=== PATIENT | female | born 1965 | race Hispanic/Latino ===

== ENCOUNTER 2017-12-22 16:07 | Outpatient (CLI) | payer BC | END 2017-12-22 16:08 | disposition home or self-care (01) | LOC: BICMAMMO 16:07 | PROVIDERS: ATTEND Family Medicine | DX: Z12.31 Encounter for screening mammogram for malignant neoplasm of breast (principal) | CPT/HCPCS: 77063; 77067 ==

== ENCOUNTER 2018-06-27 15:01 | Outpatient (CLI) | payer BC ==
--- NOTE | 2018-06-27 16:35 | RAD ---
CHEST 2 VIEWS: Date: 06/27/18 HISTORY: Fever and cough. FINDINGS: Cardiac silhouette and pulmonary vasculature are unremarkable. Mediastinum is midline. No confluent a ir space consolidation, pneumothorax, or pleural fluid. IMPRESSION: No active cardiopulmonary abnormalities are demonstrated. POS: [facility]
== END 2018-06-27 15:02 | disposition home or self-care (01) ==
LOC: BICRAD 15:01
PROVIDERS: ATTEND Physician Assistant
DX: R50.9 Fever, unspecified (principal)
CPT/HCPCS: 36415; 71046; 85025; 87086

== ENCOUNTER 2018-07-06 14:17 | Outpatient (CLI) | payer BC | END 2018-07-06 14:18 | disposition home or self-care (01) | LOC: ULT 14:17 | PROVIDERS: ATTEND Physician Assistant | DX: R01.1 Cardiac murmur, unspecified (principal); I08.3 Combined rheumatic disorders of mitral, aortic and tricuspid valves | CPT/HCPCS: 93306 ==

== ENCOUNTER 2019-01-10 15:34 | Outpatient (CLI) | payer BC ==
--- NOTE | 2019-01-11 08:01 | MMO ---
Bilateral MAMMO Bilat Screen [facility]. CLINICAL HISTORY: Patient is 53 years old and is seen for screening. The patient has no family history of breast cancer. The patient has no personal history of cancer. The patient has a history of bilateral Stereotatic Biopsy in 1999 - benign. VIEWS: The views performed were: bilateral craniocaudal with tomosynthesis and bilateral mediolateral oblique with tomosynthesis. FILMS COMPARED: The present examination has been compared to prior imaging studies performed at [facility] on 11/30/2013, 12/02/2014, 12/09/2015, 12/10/2016 and 12/22/2017. MAMMOGRAM FINDINGS: There are scattered fibroglandular densities. Finding 1: There are stable biopsy clips seen in both breasts. Finding 2: There are stable benign appearing calcifications seen in both breasts. Nodularity is stable. There are no suspicious masses, suspicious calcifications, or new areas of architectural distortion. IMPRESSION: THERE IS NO MAMMOGRAPHIC EVIDENCE OF MALIGNANCY. A ROUTINE FOLLOW-UP MAMMOGRAM IN 1 YEAR IS RECOMMENDED. THE RESULTS OF THIS EXAM WERE SENT TO THE PATIENT. ACR BI-RADS Category 2 - Benign finding MAMMOGRAPHY NOTE: 1. A negative mammogram report should not delay a biopsy if a dominant of clinically suspicious mass is present. 2. Approximately 10% to 15% of breast cancers are not detected by mammography. 3. Adenosis and dense breasts may obscure an underlying neoplasm.
== END 2019-01-10 15:35 | disposition home or self-care (01) ==
LOC: BICMAMMO 15:34
PROVIDERS: ATTEND Family Medicine
DX: Z12.31 Encounter for screening mammogram for malignant neoplasm of breast (principal)
CPT/HCPCS: 77063; 77067

== ENCOUNTER 2019-01-11 15:21 | Outpatient (CLI) | payer BC ==
--- NOTE | 2019-01-11 15:54 | RAD ---
XR Knee Rt 2 View History: [Knee pain] Comparison: None Findings: No fracture. No malalignment. Soft tissues are unremarkable. Small patellar osteophytes. Incidental note is made of a flabella. Impression: No acute abnormality. Small patellar osteophytes.
--- NOTE | 2019-01-11 15:54 | RAD ---
EXAM: 4 views of the right knee HISTORY: Knee pain COMPARISON: None FINDINGS: No knee effusion is seen. There is no evidence of acute fracture or dislocation. Small de la cruz llofemoral osteophytes are seen. No soft tissue swelling is present. IMPRESSION: Mild patellofemoral osteoarthritis
--- NOTE | 2019-01-11 15:55 | RAD ---
EXAM: 2 views of the left knee HISTORY: Knee pain COMPARISON: None FINDINGS: No knee effusion is seen. There is no evidence of acute fracture or dislocation. Very small patellofemoral osteophytes are seen. No soft tissue swelling is present. IMPRESSION: Minimal patellofemoral osteoarthritis
== END 2019-01-11 15:22 | disposition home or self-care (01) ==
LOC: BICRAD 15:21
PROVIDERS: ATTEND Physician Assistant
DX: M25.561 Pain in right knee (principal); M25.562 Pain in left knee; M17.0 Bilateral primary osteoarthritis of knee; M25.761 Osteophyte, right knee

== ENCOUNTER 2020-02-08 08:32 | Outpatient (CLI) | payer BC ==
--- NOTE | 2020-02-08 10:11 | MMO ---
Bilateral MAMMO Bilat Screen [facility]. CLINICAL HISTORY: Patient is 55 years old and is seen for screening. The patient has no family history of breast cancer. The patient has no personal history of cancer. The patient has a history of bilateral Stereotatic Biopsy in 1999 - benign. VIEWS: The views performed were: bilateral craniocaudal with tomosynthesis and bilateral mediolateral oblique with tomosynthesis. FILMS COMPARED: The present examination has been compared to prior imaging studies performed at [facility] on 12/09/2015, 12/10/2016, 12/22/2017 and 01/10/2019. This study has been interpreted with the assistance of computer-aided detection. MAMMOGRAM FINDINGS: There are scattered fibroglandular densities. There are stable masses with associated biopsy clip seen in both breasts. There are no suspicious masses, suspicious calcifications, or new areas of architectural distortion. IMPRESSION: THERE IS NO MAMMOGRAPHIC EVIDENCE OF MALIGNANCY. A ROUTINE FOLLOW-UP MAMMOGRAM IN 1 YEAR IS RECOMMENDED. THE RESULTS OF THIS EXAM WERE SENT TO THE PATIENT. ACR BI-RADS Category 2 - Benign finding MAMMOGRAPHY NOTE: 1. A negative mammogram report should not delay a biopsy if a dominant of clinically suspicious mass is present. 2. Approximately 10% to 15% of breast cancers are not detected by mammography. 3. Adenosis and dense breasts may obscure an underlying neoplasm. Reported by: GAGAN VIERA MD Electonically Signed: [id number]
== END 2020-02-08 08:33 | disposition home or self-care (01) ==
LOC: BICMAMMO 08:32
PROVIDERS: ATTEND Family Medicine
DX: Z12.31 Encounter for screening mammogram for malignant neoplasm of breast (principal); Z91.89 Other specified personal risk factors, not elsewhere classified
CPT/HCPCS: 77063; 77067

== ENCOUNTER 2022-05-14 10:30 | Outpatient (CLI) | payer BC | END 2022-05-14 10:31 | disposition home or self-care (01) | LOC: MRI 10:30 | PROVIDERS: ATTEND Orthopaedic Surgery Hand Surgery | DX: S69.81XA Other specified injuries of right wrist, hand and finger(s), initial encounter (principal); S63.591A Other specified sprain of right wrist, initial encounter; M85.631 Other cyst of bone, right forearm; M65.831 Other synovitis and tenosynovitis, right forearm ==

== ENCOUNTER 2022-07-21 14:47 | Outpatient (CLI) | payer BC ==
[2022-07-21 15:23] LABS: #Basophils 0.1 10x3/uL (0.0-0.2); #Eosinphils 0.3 10x3/uL (0.0-0.5); #Monocytes 0.6 10x3/uL (0.0-1.1); #Neutrophils 4.7 10x3/uL (1.5-8.4); %Basophils 0.8 % (0.0-2.0); %Eosinophils 3.2 % (0.0-6.0); %Lymphocytes 35.5 % (18.0-47.0); %Neutrophils 53.2 % (40.0-75.0); Hemoglobin 13.4 g/dL (12.0-15.5); Mean Corpuscular HGB CONC 33.8 g/dL (32.0-36.0); Mean Corpuscular Hemoglobin 27.9 pg (27.0-33.0); Mean Corpuscular Volume 82.5 fl (81.6-98.3); Mean Platelet Volume 9.4 fl (7.4-10.4); Platelet Count 360 10x3/uL (150-450); RBC Distribution Width 13.2 % (11.5-14.5); White Blood Cell (WBC) Count 8.8 10x3/uL (3.5-10.5)
== END 2022-07-21 14:48 | disposition home or self-care (01) ==
LOC: LABBT 14:47
PROVIDERS: ATTEND Orthopaedic Surgery Hand Surgery
DX: Z01.818 Encounter for other preprocedural examination (principal); S63.591A Other specified sprain of right wrist, initial encounter; S63.011A Subluxation of distal radioulnar joint of right wrist, initial encounter; M65.332 Trigger finger, left middle finger
CPT/HCPCS: 85025; 93005; 93010

== ENCOUNTER 2022-11-22 13:54 | Outpatient (CLI) | payer BC | END 2022-11-22 13:55 | disposition home or self-care (01) | LOC: BICMAMMO 13:54 | PROVIDERS: ATTEND Family Medicine | DX: Z12.31 Encounter for screening mammogram for malignant neoplasm of breast (principal) | CPT/HCPCS: 77063; 77067 ==

== ENCOUNTER 2024-01-05 11:16 | Outpatient (CLI) | payer BC | END 2024-01-05 11:17 | disposition home or self-care (01) | LOC: BICMAMMO 11:16 | PROVIDERS: ATTEND Family Medicine | DX: Z12.31 Encounter for screening mammogram for malignant neoplasm of breast (principal); Z91.89 Other specified personal risk factors, not elsewhere classified | CPT/HCPCS: 77063; 77067 ==